=== PATIENT | male | born 1965 | race Two or more races ===

== ENCOUNTER 2019-11-11 18:44 | Inpatient (IN) | payer OTHER ==
[~2019-11-11] VITALS: Ht 170.2 cm; Wt 77.6 kg
[2019-11-11] MEDS ORDERED: HYDROmorphone 1 MG/ML, 1ML INJ ONE ×2 (18:49→20:22)
--- NOTE | 2019-11-11 19:00 | NUR ---
TRANSFER FROM [facility]. PT WITH WITNESSSED SEIZURE, NO HX OF. APPROX 30 SECONDS, TONIC CLONIC. IN AMBULANCE TO HOSPITAL PT BECAME COMPATIVE AND AT [facility], PT WITH ANOTHER SEIZURE. UA AND HEAD CT NEGATIVE @ [facility]. PT RECIEVED FENT BY EMS EN ROUTE. PT RECIEVED HERE INTUBATED, 8.0, 25 @ TEETH ON PROP DRIP. NG AND RIGGS IN PLACE. PT IN 4 POINT SOFT RESTRAINTS. SISTER AT BEDSIDE.
[2019-11-11] MEDS: PROPOFOL 100 ML IV PRN ×2 (19:21→23:22)
[2019-11-11] MEDS ORDERED: HYDROmorphone 1 MG/ML, 1ML INJ IV ONE ×2 (19:30→20:30)
[2019-11-11] MEDS ORDERED: SODIUM CHLORIDE 0.9% IV ONE (19:30)
[2019-11-11] MEDS ORDERED: LEVETIRACETAM IV ONE (19:30)
[2019-11-11] MEDS ORDERED: OMNIPAQUE 350 MG/ML, 75ML BOTTLE ONE (19:57)
[2019-11-11] MEDS ORDERED: PROPOFOL 100 ML IV ONE ×2 (20:32→21:08)
[2019-11-11] MEDS ORDERED: ADDERALL (21:02)
[2019-11-11 21:03] LABS: MICROSCOPIC NOT IND
[2019-11-11] MEDS ORDERED: SENNA/DOCUSATE TABLET NG PRN (22:00)
[2019-11-11] MEDS ORDERED: FENTANYL PF 100 MCG/2ML IVPush PRN (22:00)
[2019-11-11] MEDS ORDERED: BISACODYL 10 MG SUPP PR PRN (22:00)
[2019-11-11] MEDS ORDERED: LACTULOSE 20 GM/30 ML UDC NG PRN (22:00)
[2019-11-11] MEDS ORDERED: SENNA 176 MG/5 ML ORAL SOL NG PRN (22:00)
[2019-11-11] MEDS ORDERED: LIDOCAINE-MPF 1%, 2ML ENDO PRN (22:00)
[2019-11-11] MEDS ORDERED: PHARMACY MAY ADJ FOR RENAL FX MC SCH (22:00)
--- NOTE | 2019-11-11 22:08 | NUR ---
REPORT TO ELAYNE CLAIRE
[2019-11-11] MEDS ORDERED: ACETAMINOPHEN 650 MG SUPP ONE (22:13)
--- NOTE | 2019-11-11 22:24 | NUR ---
PT TEMPERTURE RISING. DR INGRAM STATES TO TREAT OVER 100.4. SUPPOSITORY TYLONOL ADMINISTERED
[2019-11-11] MEDS ORDERED: ACETAMINOPHEN 650 MG SUPP PR ONE ×2 (22:30)
[2019-11-11] MEDS: FAMOTIDINE 20 MG/2 ML IV SCH (23:24)
[2019-11-12] MEDS: LORazepam 2 MG/ML, 1ML IVPush PRN (00:38)
[2019-11-12 01:45] VITALS: BP 128/82
[2019-11-12] MEDS: ACETAMINOPHEN 650 MG/20.3 ML UDC PO/NG PRN ×2 (03:56→19:38)
[2019-11-12] MEDS: PROPOFOL 100 ML IV PRN (03:57)
[2019-11-12 04:00] VITALS: BP 138/84
[2019-11-12 04:36] LABS: BASOPHILS # (AUTO) 0.07 x10^3/uL (0-0.1); BASOPHILS % (AUTO) 1 % (0-1); EOSINOPHILS # (AUTO) 0.03 x10^3/uL (0-0.4); EOSINOPHILS % (AUTO) 0 % (1-7); LYMPHOCYTES # (AUTO) 1.43 x10^3/uL (1-3.4); LYMPHOCYTES % (AUTO) 11 % (22-44); MD NO; MEAN CORPUSCULAR HEMOGLOBIN 25.3 pg (27.5-34.5); MEAN CORPUSCULAR HGB CONC 32.8 g/dL (33.2-36.2); MEAN CORPUSCULAR VOLUME 77.3 fL (81-97); MEAN PLATELET VOLUME 10.4 fL (7.4-10.4); MONOCYTES # (AUTO) 1.13 x10^3/uL (0.2-0.8); MONOCYTES % (AUTO) 9 % (2-9); NEUTROPHILS # (AUTO) 10.51 x10^3/uL (1.8-6.8); NEUTROPHILS % (AUTO) 80 % (42-75); PLATELET COUNT 268 x10^3/uL (130-400); RED BLOOD COUNT 5.44 x10^6/uL (4.38-5.82); RED CELL DISTRIBUTION WIDTH 15.3 % (9.4-14.8)
[2019-11-12 04:40] LABS: ANION GAP 6 mmol/L (5-15); CALCIUM 8.4 mg/dL (8.5-10.1); CHLORIDE 107 mmol/L (98-107); CREATININE 0.87 mg/dL (0.7-1.3)
[2019-11-12] MEDS ORDERED: GADOTERATE 10 MMOL/20 ML VIAL ONE (06:14)
[2019-11-12] MEDS: ENOXAPARIN 40 MG/0.4 ML SQ SCH (06:31)
[2019-11-12] MEDS ORDERED: LORazepam 2 MG/ML, 1ML IVPush ONE (08:30)
[2019-11-12] MEDS ORDERED: LEVETIRACETAM 100 MG/ML, 5ML IV SCH (09:00)
[2019-11-12] MEDS: LEVETIRACETAM 1,000 MG in SODIUM CHLORIDE 0.9% 100 ML IV SCH ×2 (09:25→20:35)
[2019-11-12] MEDS: FAMOTIDINE 20 MG/2 ML IV SCH ×2 (10:44→22:48)
[2019-11-12] MEDS ORDERED: SODIUM CHLORIDE 0.9% 1,000ML IVBOLUS ONE (11:00)
[2019-11-12] MEDS ORDERED: VANCOMYCIN PER PHARMACY MC PRN (12:00)
[2019-11-12] MEDS ORDERED: PHARMACOKINETIC MONITORING MC PRN (12:30)
[2019-11-12] MEDS ORDERED: PHARMACOKINETIC CONSULTATION MC ONE (12:30)
[2019-11-12] MEDS: PIPERACILLIN/TAZO/PMX 3.375GM 50 ML IV SCH ×2 (12:56→18:42)
[2019-11-12] MEDS ORDERED: VANCOMYCIN 2,000 MG in SODIUM CHLORIDE 0.9% 500 ML IV ONE (13:00)
[2019-11-13] MEDS: PIPERACILLIN/TAZO/PMX 3.375GM 50 ML IV SCH ×4 (00:03→18:04)
[2019-11-13] MEDS: ACETAMINOPHEN 650 MG/20.3 ML UDC PO/NG PRN ×5 (00:03→18:07)
[2019-11-13] MEDS: VANCOMYCIN 1,600 MG in SODIUM CHLORIDE 0.9% 250 ML IV SCH ×2 (01:15→13:43)
[2019-11-13 04:00] VITALS: BP 128/74
[2019-11-13 04:38] LABS: BASOPHILS # (AUTO) 0.05 x10^3/uL (0-0.1); BASOPHILS % (AUTO) 0 % (0-1); EOSINOPHILS % (AUTO) 0 % (1-7); LYMPHOCYTES # (AUTO) 1.34 x10^3/uL (1-3.4); LYMPHOCYTES % (AUTO) 10 % (22-44); MD NO; MEAN CORPUSCULAR HEMOGLOBIN 25.6 pg (27.5-34.5); MEAN CORPUSCULAR HGB CONC 33.3 g/dL (33.2-36.2); MEAN PLATELET VOLUME 10.3 fL (7.4-10.4); MONOCYTES # (AUTO) 1.34 x10^3/uL (0.2-0.8); MONOCYTES % (AUTO) 10 % (2-9); NEUTROPHILS # (AUTO) 10.67 x10^3/uL (1.8-6.8); NEUTROPHILS % (AUTO) 80 % (42-75); PLATELET COUNT 230 x10^3/uL (130-400); RED BLOOD COUNT 4.87 x10^6/uL (4.38-5.82); RED CELL DISTRIBUTION WIDTH 15.2 % (9.4-14.8)
[2019-11-13 04:45] LABS: ANION GAP 9 mmol/L (5-15); CALCIUM 7.8 mg/dL (8.5-10.1); CHLORIDE 106 mmol/L (98-107)
[2019-11-13] MEDS: ENOXAPARIN 40 MG/0.4 ML SQ SCH (05:28)
[2019-11-13] MEDS ORDERED: chlorPROMAZINE 25 MG/ML, 1ML IM PRN (07:00)
[2019-11-13] MEDS: LEVETIRACETAM 1,000 MG in SODIUM CHLORIDE 0.9% 100 ML IV SCH ×2 (08:08→20:32)
[2019-11-13] MEDS: POTASSIUM CHLORIDE 20 MEQ TAB.ER.PRT PO SCH ×2 (08:16→17:13)
[2019-11-13] MEDS: FAMOTIDINE 20 MG/2 ML IV SCH ×2 (09:59→22:01)
[2019-11-13] MEDS ORDERED: CEFTRIAXONE PMX 2GM/50ML 50 ML IV SCH (10:30)
[2019-11-13 12:21] LABS: GLUCOSE, CSF 74 mg/dL (40-80); TOTAL PROTEIN,CSF 54 mg/dL (15-45)
[2019-11-13] MEDS: LORazepam 2 MG/ML, 1ML IVPush PRN ×4 (14:31→20:32)
[2019-11-13] MEDS: PROPOFOL 100 ML IV PRN ×2 (15:03→19:50)
[2019-11-13] MEDS ORDERED: chlorPROMAZINE 25 MG/ML, 2ML IM PRN (20:30)
[2019-11-14] MEDS: PROPOFOL 100 ML IV PRN (00:19)
[2019-11-14] MEDS: PIPERACILLIN/TAZO/PMX 3.375GM 50 ML IV SCH ×5 (00:19→23:41)
[2019-11-14] MEDS: LORazepam 2 MG/ML, 1ML IVPush PRN ×2 (01:20→11:20)
[2019-11-14] MEDS: VANCOMYCIN 1,600 MG in SODIUM CHLORIDE 0.9% 250 ML IV SCH ×2 (01:20→13:55)
[2019-11-14 04:00] VITALS: BP 119/68
[2019-11-14 04:49] LABS: BASOPHILS # (AUTO) 0.03 x10^3/uL (0-0.1); BASOPHILS % (AUTO) 0 % (0-1); EOSINOPHILS # (AUTO) 0.02 x10^3/uL (0-0.4); EOSINOPHILS % (AUTO) 0 % (1-7); LYMPHOCYTES # (AUTO) 2.39 x10^3/uL (1-3.4); LYMPHOCYTES % (AUTO) 16 % (22-44); MD NO; MEAN CORPUSCULAR HEMOGLOBIN 25.8 pg (27.5-34.5); MEAN CORPUSCULAR HGB CONC 33.3 g/dL (33.2-36.2); MEAN CORPUSCULAR VOLUME 77.5 fL (81-97); MONOCYTES # (AUTO) 1.32 x10^3/uL (0.2-0.8); MONOCYTES % (AUTO) 9 % (2-9); NEUTROPHILS # (AUTO) 11.29 x10^3/uL (1.8-6.8); NEUTROPHILS % (AUTO) 75 % (42-75); PLATELET COUNT 195 x10^3/uL (130-400); RED BLOOD COUNT 4.69 x10^6/uL (4.38-5.82); RED CELL DISTRIBUTION WIDTH 15.5 % (9.4-14.8)
[2019-11-14 05:00] LABS: ANION GAP 8 mmol/L (5-15); CHLORIDE 110 mmol/L (98-107); CREATININE 0.83 mg/dL (0.7-1.3); TRIGLYCERIDES 113 mg/dL (50-200)
[2019-11-14] MEDS: ENOXAPARIN 40 MG/0.4 ML SQ SCH (05:21)
[2019-11-14] MEDS: ACETAMINOPHEN 650 MG/20.3 ML UDC PO/NG PRN (05:38)
[2019-11-14] MEDS ORDERED: POTASSIUM CHLORIDE 20 MEQ TAB.ER.PRT PO ONE (07:00)
[2019-11-14] MEDS ORDERED: POTASSIUM CHLORIDE 10% 40 MEQ/30 ML UDC PO ONE (07:30)
[2019-11-14] MEDS: LEVETIRACETAM 1,000 MG in SODIUM CHLORIDE 0.9% 100 ML IV SCH ×2 (08:06→19:46)
[2019-11-14] MEDS ORDERED: GADOTERATE 10 MMOL/20 ML SYR ONE (10:32)
[2019-11-14] MEDS: FAMOTIDINE 20 MG/2 ML IV SCH ×2 (11:19→22:59)
[2019-11-14 14:34] LABS: AMPHETAMINE SCREEN, URINE Negative (Negative); BARBITURATE SCREEN, URINE Negative (Negative); BENZODIAZEPINE SCREEN, URINE Negative (Negative); CANNABINOID SCREEN, URINE Negative (Negative); COCAINE SCREEN, URINE Negative (Negative); METHADONE SCREEN, URINE Negative (Negative); OPIATE SCREEN, URINE Negative (Negative)
[2019-11-14 15:45] LABS: AMPHETAMINE SCREEN, URINE Negative (Negative); BARBITURATE SCREEN, URINE Negative (Negative); BENZODIAZEPINE SCREEN, URINE Negative (Negative); CANNABINOID SCREEN, URINE Negative (Negative); COCAINE SCREEN, URINE Negative (Negative); METHADONE SCREEN, URINE Negative (Negative); OPIATE SCREEN, URINE Positive (Negative)
[2019-11-15] MEDS: VANCOMYCIN 1,600 MG in SODIUM CHLORIDE 0.9% 250 ML IV SCH (00:51)
[2019-11-15 04:00] VITALS: BP 111/64
[2019-11-15 04:32] LABS: BASOPHILS # (AUTO) 0.06 x10^3/uL (0-0.1); BASOPHILS % (AUTO) 1 % (0-1); EOSINOPHILS # (AUTO) 0.04 x10^3/uL (0-0.4); EOSINOPHILS % (AUTO) 0 % (1-7); LYMPHOCYTES % (AUTO) 11 % (22-44); MD NO; MEAN CORPUSCULAR HEMOGLOBIN 25.7 pg (27.5-34.5); MEAN CORPUSCULAR HGB CONC 32.8 g/dL (33.2-36.2); MEAN CORPUSCULAR VOLUME 78.3 fL (81-97); MEAN PLATELET VOLUME 10.1 fL (7.4-10.4); MONOCYTES # (AUTO) 0.92 x10^3/uL (0.2-0.8); MONOCYTES % (AUTO) 8 % (2-9); NEUTROPHILS # (AUTO) 9.43 x10^3/uL (1.8-6.8); NEUTROPHILS % (AUTO) 80 % (42-75); PLATELET COUNT 219 x10^3/uL (130-400); RED BLOOD COUNT 4.45 x10^6/uL (4.38-5.82); RED CELL DISTRIBUTION WIDTH 15.4 % (9.4-14.8)
[2019-11-15 04:43] LABS: ANION GAP 9 mmol/L (5-15); CALCIUM 7.7 mg/dL (8.5-10.1); CHLORIDE 111 mmol/L (98-107)
[2019-11-15 04:45] LABS: CREATININE 0.63 mg/dL (0.7-1.3)
[2019-11-15] MEDS: ENOXAPARIN 40 MG/0.4 ML SQ SCH (05:15)
[2019-11-15] MEDS: PIPERACILLIN/TAZO/PMX 3.375GM 50 ML IV SCH ×3 (06:19→19:39)
[2019-11-15] MEDS ORDERED: POTASSIUM CHLORIDE 20 MEQ TAB.ER.PRT PO SCH (08:00)
[2019-11-15] MEDS: LEVETIRACETAM 1,000 MG in SODIUM CHLORIDE 0.9% 100 ML IV SCH ×2 (08:01→20:04)
[2019-11-15] MEDS: POTASSIUM CHLORIDE 20 MEQ PACKET NG SCH ×2 (08:01→17:07)
[2019-11-15] MEDS: FAMOTIDINE 20 MG/2 ML IV SCH ×2 (12:11→22:38)
[2019-11-15] MEDS ORDERED: SCOPOLAMINE 1MG PATCH TD ONE (16:30)
[2019-11-15] MEDS ORDERED: ONDANSETRON 2MG/ML, 2ML ONE (23:54)
[2019-11-16] MEDS: PIPERACILLIN/TAZO/PMX 3.375GM 50 ML IV SCH ×5 (00:23→23:57)
[2019-11-16] MEDS ORDERED: ONDANSETRON 2MG/ML, 2ML IVPush PRN (00:30)
[2019-11-16 04:00] VITALS: BP 137/81
[2019-11-16 04:43] LABS: ANION GAP 8 mmol/L (5-15); CALCIUM 8.1 mg/dL (8.5-10.1); CHLORIDE 111 mmol/L (98-107); CREATININE 0.61 mg/dL (0.7-1.3)
[2019-11-16 04:45] LABS: BASOPHILS # (AUTO) 0.06 x10^3/uL (0-0.1); BASOPHILS % (AUTO) 1 % (0-1); EOSINOPHILS # (AUTO) 0.08 x10^3/uL (0-0.4); EOSINOPHILS % (AUTO) 1 % (1-7); LYMPHOCYTES # (AUTO) 1.12 x10^3/uL (1-3.4); LYMPHOCYTES % (AUTO) 12 % (22-44); MD NO; MEAN CORPUSCULAR HEMOGLOBIN 25.2 pg (27.5-34.5); MEAN CORPUSCULAR HGB CONC 31.9 g/dL (33.2-36.2); MEAN CORPUSCULAR VOLUME 79.2 fL (81-97); MEAN PLATELET VOLUME 9.9 fL (7.4-10.4); MONOCYTES # (AUTO) 0.67 x10^3/uL (0.2-0.8); MONOCYTES % (AUTO) 7 % (2-9); NEUTROPHILS # (AUTO) 7.75 x10^3/uL (1.8-6.8); NEUTROPHILS % (AUTO) 80 % (42-75); PLATELET COUNT 225 x10^3/uL (130-400); RED BLOOD COUNT 4.52 x10^6/uL (4.38-5.82); RED CELL DISTRIBUTION WIDTH 15.6 % (9.4-14.8)
[2019-11-16] MEDS: ENOXAPARIN 40 MG/0.4 ML SQ SCH (05:59)
[2019-11-16] MEDS ORDERED: FUROSEMIDE 40 MG/4 ML IV ONE (07:00)
[2019-11-16] MEDS: POTASSIUM CHLORIDE 20 MEQ TAB.ER.PRT PO SCH ×2 (10:28→17:37)
[2019-11-16] MEDS: FAMOTIDINE 20 MG/2 ML IV SCH ×2 (12:21→23:37)
[2019-11-16] MEDS: LEVETIRACETAM 500 MG in SODIUM CHLORIDE 0.9% 100 ML IV SCH (14:22)
[2019-11-17] MEDS: LEVETIRACETAM 500 MG in SODIUM CHLORIDE 0.9% 100 ML IV SCH (01:33)
[2019-11-17 04:43] LABS: ANION GAP 4 mmol/L (5-15); CALCIUM 9.4 mg/dL (8.5-10.1); CHLORIDE 113 mmol/L (98-107); CREATININE 0.82 mg/dL (0.7-1.3); MEAN CORPUSCULAR HEMOGLOBIN 25.5 pg (27.5-34.5); MEAN CORPUSCULAR HGB CONC 32.5 g/dL (33.2-36.2); MEAN CORPUSCULAR VOLUME 78.3 fL (81-97); MEAN PLATELET VOLUME 9.6 fL (7.4-10.4); PLATELET COUNT 344 x10^3/uL (130-400); RED BLOOD COUNT 4.93 x10^6/uL (4.38-5.82); RED CELL DISTRIBUTION WIDTH 15.3 % (9.4-14.8)
[2019-11-17 05:00] VITALS: BP 110/68
[2019-11-17] MEDS: PIPERACILLIN/TAZO/PMX 3.375GM 50 ML IV SCH ×3 (05:35→18:01)
[2019-11-17] MEDS: ENOXAPARIN 40 MG/0.4 ML SQ SCH (05:35)
[2019-11-17 05:50] LABS: BASOPHILS # (AUTO) 0.06 x10^3/uL (0-0.1); BASOPHILS % (AUTO) 1 % (0-1); EOSINOPHILS # (AUTO) 0.24 x10^3/uL (0-0.4); EOSINOPHILS % (AUTO) 2 % (1-7); LYMPHOCYTES # (AUTO) 1.56 x10^3/uL (1-3.4); LYMPHOCYTES % (AUTO) 14 % (22-44); MD SCAN; MONOCYTES % (AUTO) 6 % (2-9); NEUTROPHILS # (AUTO) 8.92 x10^3/uL (1.8-6.8); NEUTROPHILS % (AUTO) 78 % (42-75)
[2019-11-17] MEDS: FAMOTIDINE 20 MG/2 ML IV SCH ×2 (11:34→21:47)
--- NOTE | 2019-11-17 13:06 | NUR ---
REC: NPO WITH ONGOING NG TUBE Addendum: 11/17/19 at [address] Amended: Links added.
[2019-11-17] MEDS ORDERED: VALPROATE SODIUM 100 MG/ML, 5ML IVPush ONE (13:10)
[2019-11-17 16:53] LABS: MICROSCOPIC AUTO
[2019-11-17 18:43] VITALS: BP 139/86
[2019-11-17] MEDS ORDERED: VALPROATE SODIUM 100 MG/ML, 5ML IV SCH (21:00)
[2019-11-17] MEDS: VALPROATE SODIUM 250 MG in DEXTROSE 5% 100 ML IV SCH (21:47)
[2019-11-17 23:37] VITALS: BP 152/89
[2019-11-17] MEDS ORDERED: LORazepam 2 MG/ML, 1ML IVPush STA (23:59)
[2019-11-17] MEDS ORDERED: LABETALOL 5MG/ML, 20ML IVPush STA (23:59)
[2019-11-18] MEDS: PIPERACILLIN/TAZO/PMX 3.375GM 50 ML IV SCH ×4 (00:54→18:01)
[2019-11-18 01:43] VITALS: BP 146/82
[2019-11-18] MEDS: LORazepam 2 MG/ML, 1ML IVPush PRN ×2 (02:44→04:51)
[2019-11-18 04:48] LABS: ANION GAP 9 mmol/L (5-15); CALCIUM 9.2 mg/dL (8.5-10.1); CHLORIDE 112 mmol/L (98-107)
[2019-11-18 04:56] LABS: CREATININE 0.91 mg/dL (0.7-1.3)
[2019-11-18 05:02] LABS: BASOPHILS # (AUTO) 0.01 x10^3/uL (0-0.1); BASOPHILS % (AUTO) 0 % (0-1); EOSINOPHILS # (AUTO) 0.26 x10^3/uL (0-0.4); EOSINOPHILS % (AUTO) 2 % (1-7); LYMPHOCYTES # (AUTO) 1.83 x10^3/uL (1-3.4); LYMPHOCYTES % (AUTO) 13 % (22-44); MD NO; MEAN CORPUSCULAR HEMOGLOBIN 25.8 pg (27.5-34.5); MEAN CORPUSCULAR HGB CONC 32.8 g/dL (33.2-36.2); MEAN CORPUSCULAR VOLUME 78.6 fL (81-97); MEAN PLATELET VOLUME 9.4 fL (7.4-10.4); MONOCYTES # (AUTO) 0.59 x10^3/uL (0.2-0.8); MONOCYTES % (AUTO) 4 % (2-9); NEUTROPHILS # (AUTO) 11.34 x10^3/uL (1.8-6.8); NEUTROPHILS % (AUTO) 81 % (42-75); PLATELET COUNT 403 x10^3/uL (130-400); RED BLOOD COUNT 5.42 x10^6/uL (4.38-5.82); RED CELL DISTRIBUTION WIDTH 15.2 % (9.4-14.8)
[2019-11-18 05:48] VITALS: BP 143/92
[2019-11-18] MEDS: ENOXAPARIN 40 MG/0.4 ML SQ SCH (06:09)
[2019-11-18 06:35] VITALS: BP 142/96
[2019-11-18] MEDS: VALPROATE SODIUM 250 MG in DEXTROSE 5% 100 ML IV SCH ×2 (09:07→20:56)
[2019-11-18] MEDS: FAMOTIDINE 20 MG/2 ML IV SCH ×2 (10:26→22:19)
[2019-11-18 12:52] VITALS: BP 135/91
[2019-11-18 18:37] VITALS: BP 153/99
[2019-11-18] MEDS ORDERED: LORazepam 1MG TABLET NG PRN (21:00)
[2019-11-19] MEDS: PIPERACILLIN/TAZO/PMX 3.375GM 50 ML IV SCH ×4 (00:38→18:17)
[2019-11-19 00:48] VITALS: BP 145/76
[2019-11-19 05:37] LABS: ANION GAP 6 mmol/L (5-15); CALCIUM 9.8 mg/dL (8.5-10.1); CHLORIDE 113 mmol/L (98-107)
[2019-11-19 05:39] LABS: CREATININE 0.97 mg/dL (0.7-1.3)
[2019-11-19 05:40] LABS: BASOPHILS # (AUTO) 0.12 x10^3/uL (0-0.1); BASOPHILS % (AUTO) 1 % (0-1); EOSINOPHILS # (AUTO) 0.68 x10^3/uL (0-0.4); EOSINOPHILS % (AUTO) 5 % (1-7); LYMPHOCYTES # (AUTO) 2.32 x10^3/uL (1-3.4); LYMPHOCYTES % (AUTO) 16 % (22-44); MD NO; MEAN CORPUSCULAR HEMOGLOBIN 25.7 pg (27.5-34.5); MEAN CORPUSCULAR HGB CONC 32.6 g/dL (33.2-36.2); MEAN CORPUSCULAR VOLUME 78.8 fL (81-97); MEAN PLATELET VOLUME 9.8 fL (7.4-10.4); MONOCYTES # (AUTO) 1.32 x10^3/uL (0.2-0.8); MONOCYTES % (AUTO) 9 % (2-9); NEUTROPHILS # (AUTO) 9.72 x10^3/uL (1.8-6.8); NEUTROPHILS % (AUTO) 69 % (42-75); PLATELET COUNT 491 x10^3/uL (130-400); RED BLOOD COUNT 5.63 x10^6/uL (4.38-5.82); RED CELL DISTRIBUTION WIDTH 15.4 % (9.4-14.8)
[2019-11-19] MEDS: ENOXAPARIN 40 MG/0.4 ML SQ SCH (06:14)
[2019-11-19 07:09] VITALS: BP 133/82
[2019-11-19] MEDS: VALPROATE SODIUM 250 MG in DEXTROSE 5% 100 ML IV SCH ×2 (09:02→20:24)
[2019-11-19] MEDS: FAMOTIDINE 20 MG/2 ML IV SCH ×2 (11:27→23:10)
[2019-11-19 13:14] VITALS: BP 139/85
[2019-11-19 18:30] VITALS: BP 146/90
[2019-11-19] MEDS ORDERED: TEMAZEPAM 15 MG CAPSULE PO PRN (19:30)
[2019-11-20] MEDS: PIPERACILLIN/TAZO/PMX 3.375GM 50 ML IV SCH ×3 (01:20→12:21)
[2019-11-20 01:24] VITALS: BP 139/87
[2019-11-20 06:07] LABS: BASOPHILS # (AUTO) 0.06 x10^3/uL (0-0.1); BASOPHILS % (AUTO) 1 % (0-1); EOSINOPHILS # (AUTO) 0.81 x10^3/uL (0-0.4); EOSINOPHILS % (AUTO) 7 % (1-7); LYMPHOCYTES # (AUTO) 1.85 x10^3/uL (1-3.4); LYMPHOCYTES % (AUTO) 15 % (22-44); MD NO; MEAN CORPUSCULAR HEMOGLOBIN 25.5 pg (27.5-34.5); MEAN CORPUSCULAR HGB CONC 32.4 g/dL (33.2-36.2); MEAN CORPUSCULAR VOLUME 78.7 fL (81-97); MEAN PLATELET VOLUME 9.6 fL (7.4-10.4); MONOCYTES # (AUTO) 1.29 x10^3/uL (0.2-0.8); MONOCYTES % (AUTO) 11 % (2-9); NEUTROPHILS # (AUTO) 8.15 x10^3/uL (1.8-6.8); NEUTROPHILS % (AUTO) 67 % (42-75); PLATELET COUNT 455 x10^3/uL (130-400); RED BLOOD COUNT 5.37 x10^6/uL (4.38-5.82); RED CELL DISTRIBUTION WIDTH 15.9 % (9.4-14.8)
[2019-11-20] MEDS: ENOXAPARIN 40 MG/0.4 ML SQ SCH (06:25)
[2019-11-20 06:30] VITALS: BP 130/80
[2019-11-20 06:46] LABS: ANION GAP 5 mmol/L (5-15); CALCIUM 9.1 mg/dL (8.5-10.1); CHLORIDE 110 mmol/L (98-107)
[2019-11-20 06:47] LABS: CREATININE 0.96 mg/dL (0.7-1.3)
[2019-11-20] MEDS: VALPROATE SODIUM 250 MG in DEXTROSE 5% 100 ML IV SCH (08:24)
[2019-11-20] MEDS: FAMOTIDINE 20 MG/2 ML IV SCH (11:16)
[2019-11-20] MEDS ORDERED: VALP250C59 PO (12:18)
[2019-11-20] MEDS ORDERED: LORA-446 NG (12:18)
[2019-11-20 13:54] VITALS: BP 112/76
== END 2019-11-20 17:07 | disposition short-term general hospital (02) | DRG 871 ==
LOC: ED 21:34 → EDIP 23:07 → CCU 23:10 → 4WST 11-17 18:36
PROVIDERS: ADMIT Internal Medicine; ATTEND Hospitalist
PROC: 0T9B70Z Drainage of Bladder with Drainage Device, Via Natural or Artificial Opening (ICD-10-PCS; principal; 2019-11-11)
PROC: 5A1945Z Respiratory Ventilation, 24-96 Consecutive Hours (ICD-10-PCS; 2019-11-11)
PROC: 0BH17EZ Insertion of Endotracheal Airway into Trachea, Via Natural or Artificial Opening (ICD-10-PCS; 2019-11-11)
DX: A41.9 Sepsis, unspecified organism (principal); J96.01 Acute respiratory failure with hypoxia; G93.1 Anoxic brain damage, not elsewhere classified; Z99.11 Dependence on respirator [ventilator] status; F90.9 Attention-deficit hyperactivity disorder, unspecified type; G40.901 Epilepsy, unspecified, not intractable, with status epilepticus; Z79.899 Other long term (current) drug therapy; Z80.7 Family history of other malignant neoplasms of lymphoid, hematopoietic and related tissues; Z82.49 Family history of ischemic heart disease and other diseases of the circulatory system; Z83.3 Family history of diabetes mellitus
CPT/HCPCS: 36415; 36600; 74018; 89051; 96374; 96375; 96376; 99291; J3490; 70496; 70498; 70553; 71045; 80048; 80164; 80202; 80307; 81001; 81003; 82803; 82945; 83735; 84157; 84478; 85025; 87040; 87070; 87081; 87205; 87252; 87529; 93005; 94002; 94003; 95715; 95819; G0378; J0696; J1170; J1650; J1940; J1953; J2405; J2543; J2704; J3010; J3230; J3370; Q9967; A9575; J2060; J7030; J7040; J7050